=== PATIENT | female | born 1980 | race Caucasian/White ===

== ENCOUNTER 2022-03-08 19:37 | Emergency (ER) | payer OTHER, SELFPAY ==
[2022-03-08] MEDS ORDERED: Bacitracin 1 PK ONE (20:20)
[2022-03-08] MEDS ORDERED: Boostrix 0.5 ML (Tdap) VIAL ONE (20:51)
== END 2022-03-08 21:25 | disposition home or self-care (01) ==
LOC: CSHERS 19:37
DX: S61.254A Open bite of right ring finger without damage to nail, initial encounter (principal); S61.252A Open bite of right middle finger without damage to nail, initial encounter; Z23 Encounter for immunization; W54.0XXA Bitten by dog, initial encounter; Y92.89 Other specified places as the place of occurrence of the external cause; Y99.0 Civilian activity done for income or pay
CPT/HCPCS: 90471; 90715